=== PATIENT | male | born 1945 | race Caucasian/White ===

== ENCOUNTER 2018-09-05 10:44 | Emergency (ER) | payer BC, MEDICARE ==
[2018-09-05 10:51] VITALS: BMI 35.2
--- NOTE | 2018-09-05 11:58 | ED PDOC ---
HPI: Back Time Seen by Provider: 09/05/18 11:14 Chief Complaint (Nursing): Lower Extremity Problem/Injury Chief Complaint (Provider): Lower Extremity Problem/Injury History Per: Patient History/Exam Limitations: no limitations Onset/Duration Of Symptoms: Persistent (x1 week) Current Symptoms Are (Timing): Still Present Additional Complaint(s): 73 year old male presents to the emergency department with a complaint of right hip pain status post lifting heavy onject above his head 1 week ago. Patient states the pain radiates from his right buttock to his leg which becomes worse with any movement. He has used patches and balms with no alleviation. No oral medication were taken for relief. Additionally, he received an unknown injection from a doctor yesterday which did not help. He denies any constipation, urinary complaints, fever, chills, night sweats, weight loss, numbness, or motor weakness. Past Medical History Reviewed: Historical Data, Nursing Documentation, Vital Signs Vital Signs: Last Vital Signs Temp 98 F 09/05/18 10:50 Pulse 55 L 09/05/18 10:50 Resp 18 09/05/18 10:50 BP 162/76 H 09/05/18 10:50 Pulse Ox 97 09/05/18 10:50 Primary Care Provider: Non [facility] Provider, - Medical History PMH: No Chronic Diseases - Surgical History Surgical History: Cholecystectomy - Family History Family History: States: Diabetes - Social History Current smoker - smoking cessation education provided: No Alcohol: None Drugs: Denies - Immunization History Hx Tetanus Toxoid Vaccination: No Hx Influenza Vaccination: No Hx Pneumococcal Vaccination: No - Home Medications Home Medications: Ambulatory Orders Medication Instructions Recorded Acetaminophen [Tylenol Extra 1,000 mg PO Q6 PRN #100 tablet 09/05/18 Strength] Cyclobenzaprine [Flexeril] 5 mg PO Q8 PRN #15 tab 09/05/18 Ibuprofen [Motrin Tab] 600 mg PO Q8 PRN #60 tab 09/05/18 - Allergies Allergies/Adverse Reactions: Allergies Allergy/AdvReac Type Severity Reaction Status Date / Time No Known Allergies Allergy Verified 09/05/18 11:23 Review of Systems ROS Statement: Except As Marked, All Systems Reviewed And Found Negative Constitutional: Negative for: Fever, Chills, Sweats, Weight loss Gastrointestinal: Negative for: Constipation Genitourinary Male: Negative for: Dysuria, Incontinence (or retention), Hematuria Musculoskeletal: Positive for: Leg Pain (right), Other (right hip/buttock pain) Neurological: Negative for: Weakness (motor), Numbness Physical Exam - Reviewed Nursing Documentation Reviewed: Yes Vital Signs Reviewed: Yes - Physical Exam Appears: Positive for: Non-toxic, In Acute Distress Head Exam: Positive for: ATRAUMATIC, NORMOCEPHALIC Gastrointestinal/Abdominal: Positive for: Soft. Negative for: Tenderness, Distended, Guarding, Rebound Back: Positive for: Vertebral Tenderness (paraspinal). Negative for: L CVA Tenderness, R CVA Tenderness, Muscle Spasm (or midline on palpation) Extremity: Positive for: Normal ROM (upper/lower/hip), Tenderness (si joint on palpation with (+) right straight-leg raise). Negative for: Deformity (hip) Neurological/Psych: Positive for: Awake, Alert, Oriented. Negative for: Motor/Sensory Deficits - ECG O2 Sat by Pulse Oximetry: 97 (RA) Pulse Ox Interpretation: Normal Medical Decision Making Medical Decision Making: Initial Impression: right hip and leg pain Differential diagnosis includes but not limited to: sciatica; herniated disc; lumbar/spine/hip occult fracture Initial Plan: * Flexeril PO * Toradol IM * Tylenol PO * XR right hip/lumbar - Scribe Attestation: Documented by Sandra Rey, acting as a scribe for Karlee Muniz MD. Provider Scribe Attestation: All medical record entries made by the Scribe were at my direction and personally dictated by me. I have reviewed the chart and agree that the record accurately reflects my personal performance of the history, physical exam, medical decision making, and the department course for this patient. I have also personally directed, reviewed, and agree with the discharge instructions and disposition. Disposition - Clinical Impression Clinical Impression: Sciatica Counseled Patient/Family Regarding: Studies Performed, Diagnosis, Need For Followup, Rx Given - Disposition Referrals: Sheldon Bangura MD [Staff Provider] - 09/06/18 Disposition: Routine/Home Disposition Time: 13:00 Condition: IMPROVED Prescriptions: Acetaminophen [Tylenol Extra Strength] 1,000 mg PO Q6 PRN #100 tablet PRN Reason: FEVER OR PAIN Cyclobenzaprine [Flexeril] 5 mg PO Q8 PRN #15 tab PRN Reason: muscle spasm Ibuprofen [Motrin Tab] 600 mg PO Q8 PRN #60 tab PRN Reason: Pain, Moderate (4-7) Instructions: Sciatica (DC), Sciatica Exercises Forms: [facility] ED School/Work Excuse Print Language: GERMAN
[2018-09-05 14:00] VITALS: BP 136/63; PULSE 56; RESP 16; TEMP 97.8
--- NOTE | 2018-09-05 16:15 | RAD ---
Date of service: 09/05/2018 09/05/2018 PROCEDURE: Radiographs of the Lumbar Spine. HISTORY: severe hip/sciatic pain COMPARISON: No prior. TECHNIQUE: Three views obtained. FINDINGS: BONES: Normal alignment. No listhesis. No fracture. DISC SPACES: Unremarkable. OTHER FINDINGS: None. IMPRESSION: Unremarkable radiographs of the lumbar spine.
--- NOTE | 2018-09-05 16:15 | RAD ---
PROCEDURE: Right Hip Radiographs. HISTORY: severe hip/sciatic pain COMPARISON: None. TECHNIQUE: 2 views obtained. FINDINGS: BONES: Normal. No fracture. JOINTS: Normal. SOFT TISSUES: Normal. OTHER FINDINGS: None. IMPRESSION: Normal radiographs of right hip.
[2018-09-06 10:25] VITALS: O2SAT 97
== END 2018-09-05 13:58 | disposition home or self-care (01) ==
LOC: H.ER 10:44
DX: M54.31 Sciatica, right side (principal)
CPT/HCPCS: 72100; 73502; 96372; 99284; J1885